=== PATIENT | female | born 1980 | race Caucasian/White ===

== ENCOUNTER → 2021-04-04 16:35 | Outpatient (BNVA) | payer BC, SELFPAY | PROVIDERS: Visit Provider Family Medicine | DX: I10 Essential (primary) hypertension (principal) | CPT/HCPCS: 80053; 80061; 84443; 85025 ==

== ENCOUNTER → 2021-10-12 10:44 | Outpatient (BNVA) | payer OTHER, SELFPAY | PROVIDERS: PCP Family Medicine; Visit Provider Nurse Practitioner Family | DX: N39.0 Urinary tract infection, site not specified (principal) | CPT/HCPCS: 81003; 87077; 87086; 87184 ==

== ENCOUNTER 2021-11-27 12:26 | Outpatient (CLI) | payer OTHER, SELFPAY ==
--- NOTE | 2021-11-27 12:42 | MR_ITS ---
WS: [id number] MRI LEFT SHOULDER ARTHROGRAM HISTORY: LT SHOULDER PAIN COMPARISON: None available. TECHNIQUE: Pre and postcontrast imaging. Gadolinium mixture was injected under fluoroscopy. Coronal T 1 fat sat, sagittal T2 fat sat, coronal T2 fat sat, axial proton density, axial T1 nonfat saturation and ABER sagittal T1 fat sat views are submitted. Precontrast: There is a small amount of increased signal at the AC joint consistent with a very mild sprain. No significant amount of fluid in the subacromial or subdeltoid bursa. Small osteophyte from the distal clavicle with slight encroachment upon the supraspinatus muscle. There is osteophyte from the distal undersurface of the acromion. No fracture or marrow edema. Signal within the muscles is no rmal. Very mild tendinopathy in the supraspinatus but no tear. No retraction or muscle atrophy. No os acromion. Biceps tendon in normal position. Postcontrast: On the post arthrogram imaging there is a large amount of contrast that extravasates fr om the joint along the pectoralis muscle and along the subscapularis tendon. There is a large fluid g ap noted which is probably the site of extravasation involving the proximal subscapularis tendon. The re is also contrast extending into the intrasubstance portion of the subscapularis tendon with thicke collette of the tendon. There is contrast extending around the attending. Contrast extends along the josé antonio oid. Contrast extends into the base of the anterior labrum suspicious for tear. The glenohumeral liga ment does appear intact but and redundant. No contrast extends into the subacromial or subdeltoid bursa. Supraspinatus appears intact. MR/MR shoulder LT wo/w con [id number] IMPRESSION: 1. Large amount of injected contrast extends extra-articular into the pectoral is muscle. Source of the contrast appears to be a large fluid-filled gap involv ing the proximal subscapularis tendon. There is marked thickening of the subsca pularis tendon along with contrast extending intrasubstance. 2. Suspect anterior labral tear also. 3. No infraspinatus or supraspinatus tendon tear. Very mild AC joint arthritis .
--- NOTE | 2021-11-27 12:42 | IR_ITS ---
WS: [id number] LEFT SHOULDER ARTHROGRAM UNDER FLUOROSCOPY. PRIOR TO MRI EVALUATION. HISTORY: LT SHOULDER PAIN COMPARISON: None available. FLUOROSCOPY TIME: 0.5 minutes. # of spot films: 1. Procedure, risks and complications were explained to the patient. Consent has been obtained. Under fluoroscopic guidance the skin is marked over the medial superior third of the humeral head, cl eansed with ChloraPrep and anesthetized with lidocaine. 22-gauge spinal needle is inserted to the cor jayna of the humeral head. Test injection with Omnipaque reveals the needle is appropriately positioned in the joint. A mixture of 10 cc sterile saline, 5 cc Omnipaque and 0.1 mmol gadolinium are injected under fluoroscopic guidance. Patient tolerated the joint distention well. No complications. Approximately 12 cc of gadolinium mixture injected without complication. No extravasation from the nate int. IR/IR arthrogram shoulderLT [id number] IMPRESSION: Uncomplicated LEFT shoulder joint injection prior to MRI.
[2021-11-27] MEDS: iohexol 240 mg/mL 50 mL Btl INTRATHECA (16:18)
== END 2021-11-27 12:27 | disposition home or self-care (01) ==
LOC: RAD 12:28
PROVIDERS: PCP Family Medicine; Visit Provider Nurse Practitioner Family
DX: M19.012 Primary osteoarthritis, left shoulder (principal)
CPT/HCPCS: 23350; 73223; 77002; A9577